=== PATIENT | male | born 1985 | race Two or more races ===

== ENCOUNTER 2019-10-07 20:42 | Emergency (ER) | payer OTHER ==
--- NOTE | 2019-10-07 21:41 | ER Document Report ---
ED Medical Screen (RME) - General Chief Complaint: High Blood Pressure Stated Complaint: BLOOD PRESSURE ISSUE Time Seen by Provider: 10/07/19 21:36 Notes: 34 y/o male presents with elevated blood pressure and dyspnea. Pt states diagnosed with borderline hypertension while in but never placed on medications. Pt states headaches. Denies any visual changes, chest pain, nausea/vomiting. Nontoxic, well appearing. Neuro grossly intact. I have greeted and performed a rapid initial assessment of this patient. A comprehensive ED assessment and evaluation of the patient, analysis of test results and completion of the medical decision making process with be conducted by additional ED providers. - Related Data Allergies/Adverse Reactions: No Known Allergies Allergy (Unverified 10/07/19 21:26) Past Medical History - Social History Frequency of alcohol use: Occasional Drug Abuse: None Physical Exam - Vital signs Vitals: Temp Pulse Resp BP Pulse Ox 98.4 F 90 16 160/107 H 98 10/07/19 21:10 10/07/19 21:10 10/07/19 21:10 10/07/19 21:10 10/07/19 21:10 Course - Vital Signs Vital signs: Temp Pulse Resp BP Pulse Ox 98.4 F 90 16 160/107 H 98 10/07/19 21:10 10/07/19 21:10 10/07/19 21:10 10/07/19 21:10 10/07/19 21:10
--- NOTE | 2019-10-07 22:15 | RADIOLOGY REPORT (SQ) ---
EXAM DESCRIPTION: XR CHEST 2 VIEWS COMPLETED DATE/TME: 10/07/2019 21:39 CLINICAL HISTORY: 34 years, Male, dyspnea COMPARISON: None. NUMBER OF VIEWS: Two TECHNIQUE: Frontal and lateral radiograph are obtained LIMITATIONS: None. FINDINGS: Cardiac and mediastinal contours are normal. Lungs are clear. No pleural effusion or pneumothorax. IMPRESSION: No acute disease. copyright 2010 [employer]- All Rights Reserved
[2019-10-07 22:22] LABS: ABSOLUTE EOSINOPHILS # (AUTO) 0.3 10^3/uL (0.0-0.6); ABSOLUTE LYMPHOCYTES (AUTO) 1.2 10^3/uL (0.5-4.7); ABSOLUTE MONOCYTES (AUTO) 0.5 10^3/uL (0.1-1.4); ABSOLUTE NEUT (AUTO) 1.3 10^3/uL (1.7-8.2); BASOPHILS % (AUTO) 0.7 % (0-2); EOSINOPHILS % (AUTO) 7.8 % (0-6); HEMATOCRIT 43.7 % (37.9-51.0); LYMPHOCYTES % (AUTO) 36.4 % (13-45); MEAN CORPUSCULAR HEMOGLOBIN 29.7 pg (27.0-33.4); MEAN CORPUSCULAR HGB CONC 34.4 g/dL (32.0-36.0); MEAN CORPUSCULAR VOLUME 86 fl (80-97); PLATELET COUNT 255 10^3/uL (150-450); RED BLOOD COUNT 5.06 10^6/uL (4.35-5.55); RED CELL DISTRIBUTION WIDTH 13.2 % (11.5-14.0); SEGMENTED NEUTROPHILS % (AUTO) 41.1 % (42-78); TOTAL CELLS COUNTED % (AUTO) 100 %; WHITE BLOOD COUNT 3.3 10^3/uL (4.0-10.5)
[2019-10-07 22:42] LABS: ALBUMIN 4.3 g/dL (3.5-5.0); ALKALINE PHOSPHATASE 76 U/L (38-126); ANION GAP 10 (5-19); ASPARTATE AMINO TRANSFERASE 33 U/L (17-59); BILIRUBIN,DIRECT 0.2 mg/dL (0.0-0.4); BILIRUBIN,TOTAL 0.4 mg/dL (0.2-1.3); BLOOD UREA NITROGEN 13 mg/dL (7-20); CALCIUM 9.4 mg/dL (8.4-10.2); CARBON DIOXIDE 28 mmol/L (22-30); CHLORIDE 103 mmol/L (98-107); GLUCOSE 85 mg/dL (75-110); TOTAL PROTEIN 7.2 g/dL (6.3-8.2)
[2019-10-08 03:51] VITALS: BP 151/90
--- NOTE | 2019-10-08 03:54 | ER Document Report ---
HPI - HPI Time Seen by Provider: 10/07/19 21:36 Pain Level: 0 Notes: 34-year-old male patient presents the emergency department chief complaint of elevated blood pressure. Patient reports he has had elevated blood pressure in the past however nobody is ever started him on medications. Patient reports that he has had intermittent headaches over the last few years. Over the last few days he has had some shortness of breath but he thinks this is due to anxiety. Patient's mother sent him a blood pressure cuff so he could start monitoring his blood pressure. He states his blood pressure has been consistently 160/108. - CONSTITUTIONAL Constitutional: DENIES: Fever, Chills - NEURO Neurology: REPORTS: Headache Past Medical History - General Information source: Patient - Social History Smoking Status: Former Smoker Frequency of alcohol use: Occasional Drug Abuse: None Family History: Hypertension Patient has suicidal ideation: No Patient has homicidal ideation: No - Medical History Medical History: Negative Surgical Hx: Negative - Immunizations Immunizations up to date: Yes Vertical Provider Document - CONSTITUTIONAL Notes: PHYSICAL EXAMINATION: GENERAL: Well-appearing, well-nourished and in no acute distress. HEAD: Atraumatic, normocephalic. EYES: Pupils equal round and reactive to light, extraocular movements intact, sclera anicteric, conjunctiva are normal. ENT: Nares patent, oropharynx clear without exudates. Moist mucous membranes. NECK: Normal range of motion, supple without lymphadenopathy LUNGS: Breath sounds clear to auscultation bilaterally and equal. No wheezes rales or rhonchi. HEART: Regular rate and rhythm without murmurs ABDOMEN: Soft, nontender, nondistended abdomen. No guarding, no rebound. No masses appreciated. Musculoskeletal: Normal range of motion, no pitting or edema. No cyanosis. NEUROLOGICAL: Cranial nerves grossly intact. Normal speech, normal gait. Normal sensory, motor exams PSYCH: Normal mood, normal affect. SKIN: Warm, Dry, normal turgor, no rashes or lesions noted. Course - Re-evaluation Re-evalutation: Lab work unremarkable today. Patient has plans to follow-up with the [place] [facility]. Encourage patient to keep a blood pressure diary. Patient will start taking amlodipine 2.5 mg once daily. ED return precautions discussed, patient emmett balized understanding and agreement with same. - Vital Signs Vital signs: Temp Pulse Resp BP Pulse Ox 98.1 F 72 16 160/107 H 98 10/08/19 01:46 10/08/19 01:46 10/08/19 01:46 10/08/19 01:46 10/08/19 01:46 - Laboratory Result Diagrams: 10/07/19 22:05 10/07/19 22:05 Laboratory results interpreted by me: 10/07/19 22:05 WBC 3.3 L Baxter % (Auto) 14.0 H Eos % (Auto) 7.8 H Absolute Neuts (auto) 1.3 L Seg Neutrophils % 41.1 L Discharge - Discharge Clinical Impression: Hypertension Qualifiers: Hypertension type: unspecified Qualified Code(s): I10 - Essential (primary) hypertension Condition: Stable Disposition: HOME, SELF-CARE Instructions: High Blood Pressure ([facility]) Additional Instructions: Please take medication as prescribed, keep a log of your blood pressures. [facility] Prescriptions: Amlodipine Besylate [Norvasc 2.5 mg Tablet] 2.5 mg PO DAILY #30 tablet [facility]errals: [facility] [[facility] - Follow up as needed
--- NOTE | 2019-10-08 09:05 | EKG REPORT ---
SEVERITY:- BORDERLINE ECG - SINUS RHYTHM BORDERLINE T ABNORMALITIES, INFERIOR LEADS : Confirmed by: Avelino Packer MD 08-Oct-2019 07:07:21
== END 2019-10-08 04:08 | disposition home or self-care (01) ==
LOC: ER 20:42
DX: I10 Essential (primary) hypertension (principal); R51 Headache; R06.02 Shortness of breath; F41.9 Anxiety disorder, unspecified
CPT/HCPCS: 36415; 71046; 80053; 84484; 85025; 93005; 93010; 99284

== ENCOUNTER 2019-12-02 12:03 | Emergency (ER) | payer OTHER ==
--- NOTE | 2019-12-02 13:09 | ER Document Report ---
HPI - HPI Time Seen by Provider: 12/02/19 12:36 Pain Level: 2 Notes: Patient is an otherwise healthy 34-year-old male presenting to the emergency department chief complaint of request for COVID-19 testing and request for chest x-ray. Patient reports he was tested at the [place] [facility] for influenza, he tested positive for influenza A and influenza B last week. He states his symptoms have not improved and he called the [place] [facility] and they wanted him to have a chest x-ray and COVID-19 testing. Patient's current complaint is a sore throat. Patient denies any nausea, vomiting, diarrhea and has not had a fever in the last 2 days. - CONSTITUTIONAL Constitutional: DENIES: Fever, Chills - EENT EENT: REPORTS: Sore Throat - RESPIRATORY Respiratory: REPORTS: Coughing Past Medical History - General Information source: Patient - Social History Smoking Status: Never Smoker Chew tobacco use (# tins/day): No Frequency of alcohol use: Occasional Drug Abuse: None Family History: Hypertension Patient has suicidal ideation: No Patient has homicidal ideation: No - Medical History Medical History: Negative Surgical Hx: Negative - Immunizations Immunizations up to date: Yes Vertical Provider Document - CONSTITUTIONAL Notes: PHYSICAL EXAMINATION: GENERAL: Well-appearing, well-nourished and in no acute distress. HEAD: Atraumatic, normocephalic. EYES: Pupils equal round and reactive to light, extraocular movements intact, sclera anicteric, conjunctiva are normal. ENT: Nares patent, oropharynx clear without exudates. Moist mucous membranes. NECK: Normal range of motion, supple without lymphadenopathy LUNGS: Breath sounds clear to auscultation bilaterally and equal. No wheezes rales or rhonchi. HEART: Regular rate and rhythm without murmurs ABDOMEN: Soft, nontender, nondistended abdomen. No guarding, no rebound. No masses appreciated. Musculoskeletal: Normal range of motion, no pitting or edema. No cyanosis. NEUROLOGICAL: Cranial nerves grossly intact. Normal speech, normal gait. Normal sensory, motor exams PSYCH: Normal mood, normal affect. SKIN: Warm, Dry, normal turgor, no rashes or lesions noted. Course - Re-evaluation Re-evalutation: Patient appears well, nontoxic, vital signs within normal limits. His physical exam is unremarkable. Testing today was unremarkable. COVID-19 testing pending. Patient understands ED return precautions patient will be discharged home at this time. - Vital Signs Vital signs: Temp Pulse Resp BP Pulse Ox 98.6 F 86 20 139/92 H 100 12/02/19 12:11 12/02/19 12:11 12/02/19 12:11 12/02/19 12:11 12/02/19 12:11 Discharge - Discharge Clinical Impression: COVID-19 testing, Cough, Sore throat Fever Qualifiers: Fever type: unspecified Qualified Code(s): R50.9 - Fever, unspecified Condition: Stable Disposition: HOME, SELF-CARE Additional Instructions: You are seen in the emergency department today, your rapid strep test today was negative. Your influenza AMB were also negative here today. Your chest x-ray was unremarkable and showed no evidence of pneumonia. You were tested for COVID-19, you must quarantine yourself until you get your test results from the health department. A informational sheet was given to you with your discharge papers. Please return to the emergency department with any new or life- threatening concerns such as difficulty breathing or shortness of breath. Forms: Special Work Note Referrals: [facility] [[facility]] - Follow up as needed
--- NOTE | 2019-12-02 13:25 | RADIOLOGY REPORT (SQ) ---
EXAM DESCRIPTION: CHEST SINGLE VIEW IMAGES COMPLETED DATE/TIME: 12/02/2019 1:14 pm REASON FOR STUDY: cough/fever COMPARISON: 10/07/2019 EXAM PARAMETERS: NUMBER OF VIEWS: One view. TECHNIQUE: Single frontal radiographic view of the chest acquired. RADIATION DOSE: NA LIMITATIONS: None. FINDINGS: LUNGS AND PLEURA: No opacities, masses or pneumothorax. No pleural effusion. MEDIASTINUM AND HILAR STRUCTURES: No masses. Contour normal. HEART AND VASCULAR STRUCTURES: Heart normal in size. Normal vasculature. BONES: No acute findings. HARDWARE: None in the chest. OTHER: No other significant finding. IMPRESSION: NO ACUTE RADIOGRAPHIC FINDING IN THE CHEST. TECHNICAL DOCUMENTATION: JOB ID: [id number] 2010 [employer]- All Rights Reserved Reading location - IP/workstation name: [email or web address]
[2019-12-02 14:12] LABS: A TYPE INFLUENZA AG NEGATIVE (NEGATIVE); B INFLUENZA AG NEGATIVE (NEGATIVE)
[2019-12-02 14:59] VITALS: BP 150/88
== END 2019-12-02 14:59 | disposition home or self-care (01) ==
LOC: ER 12:03
DX: Z20.828 Contact with and (suspected) exposure to other viral communicable diseases (principal); J02.9 Acute pharyngitis, unspecified; R50.9 Fever, unspecified
CPT/HCPCS: 71045; 87070; 87635; 87804; 87880; 99283